=== PATIENT | male | born 1950 | race African-American/Black ===

== ENCOUNTER 2017-06-17 07:38 | Outpatient (CLI) | payer MEDICARE ==
--- NOTE | 2017-06-17 09:50 | CT ---
LOW DOSE SCREENING LUNG CT: Date: 06/17/17 HISTORY: 40+ years of smoking. Nicotine dependence. COMPARISON: None. TECHNIQUE: Noncontrast low dose screening CT of the chest is performed following institution protocol. FINDINGS: Lung Screen Specifics (Lung-RADS): Lung-RADS Category 4. There is an irregular marginated opacity in the left upper lobe measuring 1.9 x 3.3 x 2.6 cm. Differential consideration includes an area of malignancy versus scar formation. Potential Significant Incidentals: Lung-RADS Category S: None. Pulmonary Incidentals: Mild emphysematous change in the upper lobes. Other Incidentals: There are coronary calcifications. There are degenerative changes of the thoracic spine. IMPRESSION: 1. Lung-RADS Category 4: Suspicious finding requiring clinical evaluation. 2. Lung-RADS Category S: Negative. RECOMMENDATION: Pulmonary consultation is recommended. Better interrogation of the left upper lobe o pacity with PET imaging is recommended at this time. Depending on the PET findings, biopsy can be per formed. Given that the lesion does not have a pleural margin, there is a risk for pneumothorax, mitig ating the need for PET imaging prior to biopsy. CODE T. POS: [facility]
== END 2017-06-17 07:39 | disposition home or self-care (01) ==
LOC: CT 07:38
PROVIDERS: ATTEND Family Medicine
DX: F17.210 Nicotine dependence, cigarettes, uncomplicated (principal)
CPT/HCPCS: G0297

== ENCOUNTER 2017-08-11 12:05 | Outpatient (CLI) | payer MEDICARE ==
--- NOTE | 2017-08-11 15:06 | PET ---
PET CT: HISTORY: 67-year-old male with solitary pulmonary nodule, left upper lobe. TECHNIQUE: PET scanning with CT attenuation correction was performed from the base of the brain through the prox imal thighs following the intravenous administration of 11 mCi [id number] in the left antecubital fossa. Imaging performed after an uptake interval of 52 minutes. COMPARISON: None. CORRELATION: CT chest dated 06/17/17. FINDINGS: No abnormal FDG localization is seen in the left upper lobe lung nodule noted on the CT scan. No adis l hypermetabolism is seen in the neck, chest, axilla, abdomen, or pelvis. No hypermetabolic pulmonary nodules, liver, adrenal, or skeletal lesions are seen. There is physiologic activity in the GI and tracts, and the visualized portions of the brain. The CT scan used for attenuation correction demonstrates no evidence of pleural effusions or ascites. IMPRESSION: Negative PET scan. RECOMMENDATION: Follow-up of lung nodule with CT scan of chest is recommended in 3 months. POS: [facility]
== END 2017-08-11 12:06 | disposition home or self-care (01) ==
LOC: PET 12:05
PROVIDERS: ATTEND Internal Medicine Critical Care Medicine
DX: R91.1 Solitary pulmonary nodule (principal)
CPT/HCPCS: 78815; A9552

== ENCOUNTER 2017-11-08 13:09 | Outpatient (CLI) | payer MEDICARE | END 2017-11-08 13:10 | disposition home or self-care (01) | LOC: BICCT 13:09 | PROVIDERS: ATTEND Internal Medicine Critical Care Medicine | DX: R91.1 Solitary pulmonary nodule (principal); R91.8 Other nonspecific abnormal finding of lung field | CPT/HCPCS: 71250 ==

== ENCOUNTER 2018-06-21 13:43 | Outpatient (CLI) | payer MEDICARE ==
[~2018-06-21 13:43] MED LIST: Iopamidol 370 76% 100 ML VIAL ONE
--- NOTE | 2018-06-21 16:02 | CT ---
CT CHEST WITH IV CONTRAST: Date: 06/21/18 PROVIDED CLINICAL HISTORY: Pulmonary nodule. FINDINGS: Correlation is made with the examinations performed 11/08/17 and 06/17/17. Correlation is made with t he PET scan dated 08/11/17. The heart, pericardium, and great vessels demonstrate vascular calcification, including coronary calc ium, but demonstrate an otherwise unremarkable CT appearance. There is a stable spiculated mass present within the left upper lobe measuring about 3.0 cm. This dem onstrates Hounsfield units below that which would be expected for an enhancing process. Emphysematous changes are again seen. There is no pleural fluid or pneumothorax apparent. Dependent subsegmental a telectatic changes are noted. The airway appears patent and of normal caliber. No evidence for thorac ic lymph node enlargement. The visualized portions of the upper abdomen demonstrate an unremarkable C T appearance. The osseous structures demonstrate no concerning lytic or blastic lesions. IMPRESSION: Stable exam. POS: [facility]
== END 2018-06-21 13:44 | disposition home or self-care (01) ==
LOC: BICCT 13:43
PROVIDERS: ATTEND Internal Medicine Critical Care Medicine
DX: R91.8 Other nonspecific abnormal finding of lung field (principal)
CPT/HCPCS: 71260; 82565; Q9967

== ENCOUNTER 2018-09-01 06:58 | Outpatient (CLI) | payer MEDICARE ==
--- NOTE | 2018-09-01 08:00 | ULT ---
ABDOMINAL AORTIC ULTRASOUND: HISTORY: Screening for abdominal aortic aneurysm. FINDINGS: There are some atherosclerotic changes of the aorta. No evidence for focal aneurysm. The aortic bif urcation region appears unremarkable. No significant aneurysm seen involving the proximal iliac vess els, although these are somewhat obscured. IMPRESSION: No evidence of focal aneurysm. Atherosclerosis of the aorta with calcified plaques. POS: [facility]
== END 2018-09-01 06:59 | disposition home or self-care (01) ==
LOC: SCSULT 06:58
PROVIDERS: ATTEND Family Medicine
DX: Z13.6 Encounter for screening for cardiovascular disorders (principal); I70.0 Atherosclerosis of aorta
CPT/HCPCS: 76706

== ENCOUNTER 2018-12-28 09:48 | Outpatient (CLI) | payer MEDICARE ==
--- NOTE | 2018-12-28 11:59 | CT ---
CT CHEST NONCONTRAST: Date: 12/28/18 INDICATION: Pulmonary mass. COMPARISON: 06/21/18 exam. FINDINGS: Previous left upper lobe nodule is grossly stable at 2.0 x 2.5 cm in diameter. There is adjacent line ar density again seen. Underlying alveolar lucency of each lung indicates pulmonary emphysema. Depend ent atelectasis is present bilaterally. No effusion. IMPRESSION: Spiculated nodule of the left upper lobe, grossly stable. POS: [facility]
[2018-12-28] MEDS ORDERED: ISOVUE-370 76%-LOCM 1 ML ONE (15:21)
== END 2018-12-28 09:49 | disposition home or self-care (01) ==
LOC: BICCT 09:48
PROVIDERS: ATTEND Internal Medicine Critical Care Medicine
DX: R91.8 Other nonspecific abnormal finding of lung field (principal)
CPT/HCPCS: 71260; 82565; Q9966